=== PATIENT | female | born 1985 | race Caucasian/White ===

== ENCOUNTER 2016-09-03 22:23 | Outpatient (CLI) | payer MEDICAID ==
[~2016-09-03] VITALS: Ht 167.6 cm; Wt 94.6 kg
[~2016-09-03 22:23] MED LIST: PREN1TAB62 PO
--- NOTE | 2016-09-03 22:50 | PN ---
Date/Time of Note Date/Time of Note DATE: 09/03/16 TIME: 22:46 OB Subjective Subjective Subjective 30 yo P4 @36 wks, presents for second dose of betamethasone, prior to repeat c/ d tomorrow denies ctx, denies vb, no LOF, good FM OB Objective Objective Objective Nml VS abdomen- gravid, n/t SVE- deferred FHT- Cat I Abdomen: WNL Varibility: Moderate Contractions on Admission: None OB Assessment/Plan Other Assessment: reassuring status no ctx Other plan: patient to receive betamethasone return tomorrow for repeat c/d MICHAEL DIAZ MD Sep 03, 2016 22:49
[2016-09-03 22:56] VITALS: Ht 167.6 cm; Wt 94.6 kg
[2016-09-03 22:57] VITALS: BP 123/59; PULSE 80; RESP 18
[2016-09-03] MEDS ORDERED: BETAMET NA PHOS/AC(6 MG/ML) 5ML INJ IM SCH (23:00)
--- NOTE | 2016-09-04 00:45 | RADRPT ---
PROCEDURE: US OB biophysical profile. CLINICAL INDICATION: decreased movements TECHNIQUE: Multiple sonographic images of the pelvis were obtained. The images were reviewed on a PACS workstation. COMPARISON: No pertinent prior examinations were submitted for comparison. FINDINGS: There is a single viable intrauterine gestation. Cardiac activity is present with 131 beats per min [place]. There is a vertex presentation. The placenta is anterior, grade II in appearance. There is a normal amount of amniotic fluid with an VICKI = 7.9 cm. Biophysical profile: movement 2/2 tone 2/2. breathing 2/2 VICKI 2/2 Total 04/10 IMPRESSION: Normal biophysical profile. RPTAT: HIKT . .Abdirizak Fregoso MD, MD Date Time Electronically viewed and signed by .Abdirizak Fregoso MD, on 09/04/2016 00:45 .T/
--- NOTE | 2016-09-04 02:04 | TRIAGE ---
OB Triage Datetime Report Generated by CPN: 09/04/2016 02:04 Datetime: 09/04/2016 01:16 Stage of : OB Triage Datetime: 09/04/2016 00:50 Stage of : OB Triage Datetime: 09/04/2016 00:30 Stage of : OB Triage Frequency: IRREGULAR Monitor Mode: External Duration (sec)2399: 60-100 Quality: Mild Pattern: Normal: <= 5 Contractions in 10 Minutes Resting Tone Schriever: Relaxed FHR Baseline Rate: 115 Monitor Mode: External US FHR Baseline Changes: No Baseline Change Variability: Minimal - Undetectable to <=5 bpm Accelerations: 15X15 Decelerations: None Category: Category I Datetime: 09/03/2016 23:30 Stage of : OB Triage Frequency: IRREGULAR Monitor Mode: External Duration (sec)2399: 60-100 Quality: Mild Pattern: Normal: <= 5 Contractions in 10 Minutes Resting Tone Schriever: Relaxed FHR Baseline Rate: 125 Monitor Mode: External US FHR Baseline Changes: No Baseline Change Variability: Minimal - Undetectable to <=5 bpm Accelerations: 15X15 Decelerations: None Category: Category II Datetime: 09/03/2016 23:18 Stage of : OB Triage Datetime: 09/03/2016 22:33 Stage of : OB Triage Datetime: 09/03/2016 22:30 Stage of : OB Triage Datetime: 09/03/2016 22:22 Stage of : OB Triage Assessment Type: Triage Time of Arrival: 09/03/2016 22:22 EGA: 36.1 Arrived By: Wheelchair Arrived From: Home Chief Complaint: #2 BETAMETHASONE Movement: Decreased Contractions: Denies/Absent Rupture of Membranes: Denies Vaginal Bleeding: None Vaginal Discharge: Denies Recent Sexual Intercouse: Denies Abdominal Trauma: Not Applicable Patient Complaints: None Time Provider Notified: 09/03/2016 22:33 Provider Notified: DR DIAZ Initial Plan: CALL , EFM Level of Consciousness: Fully Conscious DTR's/Clonus: DTRs 2+; No Clonus Headache: Denies Blurred Vision: No Respiratory Effort: Unlabored; Regular Rhythm; Equal Expansion Breath Sounds, Left: Clear and Equal Breath Sounds, Right: Clear and Equal Nausea/Vomiting: Denies RUQ Epigastric Pain: Denies Lower Extremities Edema: None Degree: None Upper Extremities Edema: None Degree: None Facial Edema: None Temperature Route: Oral History of Falling: (0) No Secondary Diagnosis: (0) No Ambulatory Aid: (0) Bedrest/Nurse Assist IV Therapy: (0) No Gait: (0) Normal/Bedrest/Immobile Mental Status: (0) Oriented to Own Ability Fall Score: 0 Fall Risk Score Definition: No Risk: No action required Monitor Mode: External Monitor Mode: External US Pain Scale: 0
== END 2016-09-04 01:05 | disposition home or self-care (01) ==
LOC: OBT 22:23 → L-D 22:24 → OBT 09-04 01:05
PROVIDERS: ATTEND Specialist
DX: O09.893 Supervision of other high risk pregnancies, third trimester (principal); Z3A.36 36 weeks gestation of pregnancy
CPT/HCPCS: 76818; 96372; G0463

== ENCOUNTER 2016-09-04 07:30 | Inpatient (IN) | payer MEDICAID ==
[~2016-09-04] VITALS: Ht 167.6 cm; Wt 92.7 kg
[2016-09-04] MEDS: LACTATED RINGER'S 1,000 ML IV SCH ×3 (16:55→19:28)
[2016-09-04] MEDS ORDERED: OXYTOCIN 30 UNITS/LR 500 ML IV SCH (17:00)
[2016-09-04] MEDS ORDERED: METHYLERGONOVINE 0.2 MG INJ IM PRN (17:00)
[2016-09-04] MEDS ORDERED: CEFAZOLIN 2 GM/50 ML (PMX) 50 ML IV SCH (17:00)
[2016-09-04] MEDS ORDERED: OXYTOCIN 30 UNITS/LR 500 ML IV PRN (17:00)
[2016-09-04] MEDS ORDERED: CARBOPROST 250 MCG INJ IM PRN (17:00)
[2016-09-04] MEDS ORDERED: MISOPROSTOL 200 MCG TAB PR PRN ×2 (17:00→19:30)
[2016-09-04 17:05] VITALS: BP 108/58; PULSE 76; RESP 20
[2016-09-04 17:08] VITALS: Ht 167.6 cm; Wt 92.7 kg
[2016-09-04 17:21] LABS: HEMATOCRIT 35.5 % (37.0-47.0); HEMOGLOBIN 11.9 g/dl (12.0-16.0); LYMPHOCYTES # 1.4 10^3/ul (0.8-2.9); LYMPHOCYTES % 10.2 % (15.0-51.0); MEAN CORPUSCULAR HEMOGLOBIN 29.8 pg (29.0-33.0); MEAN CORPUSCULAR HGB CONC 33.4 g/dl (32.0-37.0); MEAN CORPUSCULAR VOLUME 89.1 fl (82.0-101.0); MEAN PLATELET VOLUME 10.3 fl (7.4-10.4); MONOCYTE # 0.6 10^3/ul (0.3-0.9); MONOCYTES % 4.5 % (0.0-11.0); NEUTROPHIL # 11.3 10^3/ul (1.6-7.5); NEUTROPHILS % 85.3 % (39.0-77.0); PLATELET COUNT 194 10^3/UL (140-440); RED BLOOD COUNT 3.98 10^6/ul (4.20-5.40); RED CELL DISTRIBUTION WIDTH 14.2 % (11.5-14.5); UNCORRECTED WBC 13.3 10^3/ul (4.8-10.8); WHITE BLOOD COUNT 13.3 10^3/ul (4.8-10.8)
[2016-09-04 17:32] LABS: INR 0.92; PROTIME 12.4 Sec (12.2-14.2)
[2016-09-04 17:33] LABS: PARTIAL THROMBOPLASTIN TIME 24.2 Sec (25.0-35.0)
[2016-09-04] MEDS ORDERED: CITRIC ACID/NA CITRATE 30 ML CUP ONE (17:34)
[2016-09-04 17:39] LABS: CONDITION 1
[2016-09-04] MEDS ORDERED: FAMOTIDINE 20 MG INJ ONE (17:55)
[2016-09-04] MEDS ORDERED: FAMOTIDINE 20 MG INJ IV ONE (18:00)
[2016-09-04] MEDS ORDERED: CITRIC ACID/NA CITRATE 30 ML CUP PO ONE (18:00)
[2016-09-04] MEDS ORDERED: morphine SULFATE/PF (10 MG/10 ML) INJ ONE (18:55)
[2016-09-04] MEDS ORDERED: FENTAnyl 50 MCG/ML VIAL ONE (18:56)
[2016-09-04] MEDS ORDERED: NA PHOSPHATE/BIPHOS 133 ML ENEMA PR PRN (19:30)
[2016-09-04] MEDS ORDERED: morphine 2 MG INJ IV PRN ×2 (19:30)
[2016-09-04] MEDS ORDERED: ONDANSETRON 4 MG INJ IV PRN (19:30)
[2016-09-04] MEDS ORDERED: NALOXONE (0.4 MG/ML) INJ IV PRN (19:30)
[2016-09-04] MEDS ORDERED: OXYCODONE/ACETAMINOPHEN (5/325) TAB PO PRN (19:30)
[2016-09-04] MEDS ORDERED: ZOLPIDEM 5 MG TAB PO PRN (19:30)
[2016-09-04] MEDS ORDERED: LANOLIN 7 GM TUBE TOP PRN (19:30)
[2016-09-04] MEDS ORDERED: DIPHENHYDRAMINE 50 MG INJ IV PRN (19:30)
--- NOTE | 2016-09-04 19:33 | HP ---
Date/Time of Note Date/Time of Note DATE: 09/04/16 TIME: 19:29 OB - History Hx of Present Free Text/Dictation Gin is with IUP at 36 weeks and h/o c/s x 3 in the past. she had complete uterine rupture wih last . perinatologist recommended delivery at 36 weeks. she also desires BTL. Care: Good Care Ultrasounds: Normal mid trimester US Obstetrical Complications: Other (see above) Medical Complications: None Past Family/Social History * Past Medical, Surgical, Family and Obstetric Histories reviewed from chart. OB Admission Exam Vital Signs Vital Signs Vital Signs Date Time Temp Pulse Resp B/P Pulse Ox O2 Delivery O2 Flow Rate FiO2 09/04/16 17:05 98.5 76 20 108/58 Room Air Physical Exam HEENT: WNL Heart: Rhythm Normal Lungs: Clear, Equal Abdomen: WNL Extremities: Normal Reflexes: Normal Last 72 hours Lab Results CBC & BMP 09/04/16 17:00 OB Assessment/Plan Other Assessment: 36 weeks IUP h/o c/s x 3 h/o ruptured uterus desires BTL Other plan: repeat c/s and BTL DONALD SU MD Sep 04, 2016 19:33
--- NOTE | 2016-09-04 20:18 | PREOPHP ---
DATE OF ADMISSION: 09/04/2016 The patient is a 30-year-old 5, para 4 who desires repeat delivery and tubal ligati on. The risks, benefits, indications, alternatives of procedure including but not limited to risk of inf ection; bleeding; damage to other organs, bowel, bladder; hernia formation; scar formation; possibil ity of blood transfusions were all discussed with the patient. She was allowed to ask questions, al l her questions answered. Informed consent has been obtained. Possibilities of tubal failure and f or possible pregnancies were also discussed with the patient, and informed consent was obtained. ____ delivery at 36 weeks which is unusual, but the reason is because her last wa s complicated with complete uterine rupture. The uterus was completely ruptured. She was seen by p erinatologist, and she was recommended to undergo early . She has received steroids 2 4 and 48 hours ago. PAST MEDICAL HISTORY: None. PAST SURGICAL HISTORY: delivery x3. ALLERGIES: NO KNOWN DRUG ALLERGIES. MEDICATIONS: 1. vitamins. 2. Iron. REVIEW OF SYSTEMS: Significant as above. PHYSICAL EXAMINATION: VITAL SIGNS: Stable. She is afebrile. GENERAL: No acute distress. HEENT: No thyromegaly. HEART: Regular rate and rhythm. LUNGS: Clear to auscultation bilaterally. ABDOMEN: Soft, gravid, nontender. Cervix is not examined. EXTREMITIES: No edema. ASSESSMENT: 1. Term . 2. History of previous delivery. 3. History of uterine rupture. 4. Desires permanent sterilization. PLAN: Repeat delivery and tubal ligation. Informed consent obtained. Dictated By: DONALD HADDAD/AZUCENA Conf#: [id number] DID#: [id number]
[2016-09-04] MEDS: SENNA/DOCUSATE NA (8.6MG/50MG) TAB PO SCH (21:00)
--- NOTE | 2016-09-04 22:02 | OPR ---
DATE OF OPERATION: PREOPERATIVE DIAGNOSES: 1. at 36 weeks, 2. History of previous delivery x3. 3. History of rupture. 4. The patient desires permanent sterilization. POSTOPERATIVE DIAGNOSES: 1. Repeat delivery. 2. Tubal ligation. SURGEON: Dr. Mcdowell. SUPERVISOR EVAPORATOR: . PROCEDURE: Repeat delivery and tubal ligation by bilateral salpingectomy. ESTIMATED BLOOD LOSS: 700 mL. COMPLICATIONS: None. INFORMED CONSENT: The risks, benefits, indications, alternatives of procedure including, but not li mited to, risk of infection, bleeding, damage to other organs, bowel, bladder, hernia formation, sca r formation, possibility of blood transfusions, the fact that tubal ligation is permanent and nonrev ersible but it may fail were all discussed with the patient. She was allowed to ask questions, all her questions were answered, and informed consent was obtained. DESCRIPTION OF PROCEDURE: She was taken to the operating room and spinal anesthesia was given. She was prepped and draped in usual sterile fashion. Surgical time out was done. Anesthesia was teste d to be adequate. With permission of the anesthesiologist, a Pfannenstiel skin incision was develop ed over the previous scar. The incision was taken down in layers. The fascia was cut, undermined, from the underlying muscle using sharp and blunt dissection. All bleeders were cauterized . Peritoneum was entered sharply. A low uterine transverse incision was developed over the lower s egment of the uterus and amniotic fluid was clear and adequate. The baby was born and we waited 1 m inute for delayed cord clamping, and then the cord was clamped and cut and baby was handed to [facility] [place] team. Placenta was then delivered intact. The uterus was exteriorized, wrapped in a moist lap. Inside uterus was cleansed with dry lap. All debris and membranes were removed. Uterine incision w as initially closed using #1 Monocryl in 2 layers. There was still bleeding so extra rrbbhf-[id number]-yawc t sutures were placed using 2-0 Monocryl. The bleeding continued. I used [id number] sutures u sing 0 Vicryl and then all bleeding on the uterus stopped. After complete hemostasis was achieved, the left tube was grasped using 2 Plover clamps. A 6 cm distal end of the tube was ligated 3 times using 0 plain ties. The ligated portion was cut and sent to pathology. Same procedure was done on the contralateral side. The uterus was evaluated. There was no bleeding. Uterus was inserted ins ethel the abdominal cavity. Irrigation was done. Gutters were cleaned. Uterine incision was evaluat ed carefully. There was no bleeding. Tubal ligation sites on both sides were looked at, evaluated. There was no bleeding. The peritoneum, rectus muscle, rectus fascia were evaluated. All bleeders cauterized. Peritoneal cavity was explored. There were no surgical instruments or laps left behin d. Peritoneum at this time was closed using 2-0 Monocryl and rectus muscles closed using 2-0 Monocr yl. The fascia was closed using #1 Vicryl. Subcutaneous tissue was cleaned, irrigated, all bleeder s cauterized and closed using 3-0 Vicryl, and skin closed using 4-0 Monocryl. All counts correct. Dictated By: DONALD HADDAD/AZUCENA Conf#: [id number] DID#: [id number]
[2016-09-04] MEDS: KETOROLAC 30 MG INJ IV PRN (22:41)
--- NOTE | 2016-09-04 22:50 | DELSUM ---
Delivery Summary A-C Datetime Report Generated by CPN: 09/04/2016 22:50 DELIVERY PERSONNEL [employer] Information Architect: Milagros Lamar MATERNAL INFORMATION Delivery Anesthesia: Spinal Medications in Delivery: see anesthesia Estimated Blood Loss (ml): 700 Placenta Cultured: No Maternal Complications: None RN Comments: H/O FAILED 2014 D/T UTERINE RUPTURE LABOR SUMMARY EDC: 09/30/2016 00:00 No. Babies in Womb: 1 Attempted: No Labor Anesthesia: None LABOR INFORMATION Reason for Induction: Not Applicable Oxytocin: N/A Group B Beta Strep: Negative Antibiotics # of Doses: ANCEF 2 GRAMS X1 Antibiotics Time of Last Dose: 193 Steroids Given: None Reason Steroids Not Administered: Not Applicable MEMBRANES Membranes Rupture Method: Artificial Rupture of Membranes: 09/04/2016 19:57 Length of Rupture (hr): 0.00 Amniotic Fluid Color: Clear Amniotic Fluid Amount: Moderate Amniotic Fluid Odor: Normal STAGES OF LABOR Stage 3 hr: 0 Stage 3 min: 3 CSECTION DELIVERY Primary Indication: Repeat Elective Secondary Indication: N/A CSection Urgency: Non Elective CSection Incidence: Repeat Labor: No Labor Elective: Nonelective CSection Incision: Lower Uterine Transverse Sterilization Procedure: Breezy BABY A INFORMATION Delivery Date/Time: 09/04/2016 19:57 Method of Delivery: Born in Route : No : N/A Forceps: N/A Vacuum Extraction: N/A Shoulder Dystocia : N/A SHOULDER DYSTOCIA BABY A Infant Delivery Date/Time: 09/04/2016 19:57 PRESENTATION/POSITION BABY A Presentation: Cephalic Cephalic Presentation: Vertex Vertex Position: Left Occipital Anterior Breech Presentation: N/A PLACENTA INFORMATION BABY A Placenta Delivery Time : 09/04/2016 20:00 Placenta Method of Delivery: Manual Removal Placenta Status: Delivered SCORES BABY A Heart Rate 1 min: >100 bpm Resp Effort 1 min: Good Cry Reflex Irritability 1 min: Cough/Sneeze/Pulls Away Muscle Tone 1 min: Active Motion Color 1 min: Body [place], Extremit Blue Resuscitation Effort 1 min: Tactile Stimulation SCORE 1 MIN: 9 Heart Rate 5 min: >100 bpm Resp Effort 5 min: Good Cry Reflex Irritability 5 min: Cough/Sneeze/Pulls Away Muscle Tone 5 min: Active Motion Color 5 min: Body [place], Extremit Blue Resuscitation Effort 5 min: Tactile Stimulation SCORE 5 MIN: 9 INFANT INFORMATION BABY A Gestational Age at Delivery: 36.2 Gestational Status: Late - 34- 36.6 Weeks Infant Outcome : Liveborn Condition : Stable Sex: Male IDENTIFICATION/MEDS BABY A ID Band Number: [id number] ID Band Location: Right Leg; Left Arm Sensor Number: [id number] Sensor Location : Cord Clamp Vitamin K Given : Not Given Erythromycin Given: Not Given WEIGHT/LENGTH BABY A Infant Birthweight (gm): 3270 Infant Weight (lb): 7 Infant Weight (oz): 3 Infant Length (in): 18.00 Length (cm): 45.72 CORD INFORMATION BABY A No. Cord Vessels: 3 Nuchal Cord : Around Neck x1, Loose Cord Blood Taken: Yes Infant Suction: Mouth; Nose ASSESSMENT BABY A Complications: None Physical Findings at Delivery: Within Normal Limits Respirations: Appears Normal Customs [employer] Border [employer] Inspector/ALS Called : No Care By: Prema MARADIAGA RN Transferred To: Remains with Mother
--- NOTE | 2016-09-04 22:53 | OPRPT ---
Intraop Record Datetime Report Generated by CPN: 09/04/2016 22:52 Datetime: 09/04/2016 22:45 Sequential Compression Device: Yes Datetime: 09/04/2016 22:30 Sequential Compression Device: Yes Datetime: 09/04/2016 22:15 Sequential Compression Device: Yes Datetime: 09/04/2016 22:00 Sequential Compression Device: Yes Datetime: 09/04/2016 21:45 Sequential Compression Device: Yes Datetime: 09/04/2016 21:30 Sequential Compression Device: Yes Datetime: 09/04/2016 21:15 Sequential Compression Device: Yes Datetime: 09/04/2016 21:00 Sequential Compression Device: Yes Datetime: 09/04/2016 20:50 Sequential Compression Device: Yes Datetime: 09/04/2016 18:30 OR Number: 2 TIMES/PROCEDURE Arrive OR: 09/04/2016 19:25 Depart OR: 09/04/2016 20:50 Anesthesia Start: 09/04/2016 19:15 Anesthesia End: 09/04/2016 20:56 Surgery Start: 09/04/2016 19:52 Surgery End: 09/04/2016 20:37 Preoperative Dx: 36.2 IUP REPEAT SECTION WITH BTL Surgical Procedure: Section with BTL Postoperative Dx: Repeat caesarean section and bilateral tubal ligation Uterine Incision: 09/04/2016 19:52 PERSONNEL Surgeon: Rom Mcdowell Scrub: Meet Pena Anesthesia Care Provider: Ladarius Waldron Care: See Delivery Summary for Infant Care Providers Anesthesia Type: Spinal ASA Level: II RISK FOR INJURY Mode of Arrival: Ambulate Procedure Time Out: Correct Patient Identity; Accurate Procedure Consent Form; Agreement on Procedu re to be Done; Correct Patient Position; Addressed Need to Administer Antibiotics or Fluids for Irri gation; Safety Precautions Based on Patient History or Medication Use Preoperative Information: Preoperative Checklist Reviewed; Allergies Reviewed; NPO Status Verified RISK FOR ANXIETY/KNOW DEFICIT Emotional Status: Calm/Relaxed Interventions: Provided Education Based on Age and Identified Needs; Communicated Patient Concerns to Appropriate Members of the Health Care Team; Explained Sequence of Events and Perioperative Routi ne; Evaluated Response to Instructions RISK FOR PAIN Pain Teaching: Instructed on Pain Scale Pain Scale: 2.0 Pain Location: ABDOMEN PREOPERATIVE OUTCOMES Preoperative Outcomes: Verbalizes/Indicates Decreased Anxiety, Ability to [place], Understanding of Pr ocedure and Sequence of Events. Questions Answered; Demonstrates Adequate Pain Management; Verbaliz es Comfort Related to Transfer/Transport RISK FOR INFECTION Skin Pre-Operative Site: Intact Clip: Clip Clip Location: CLOSED LEGS ABDOMINAL CLIP Prep: Yes Prep By: Fela MARTIN Prep Solution: Chlorohexadine Other Prep: 3 MINUTES MARQUITA WIPES Catheter: Almendarez Catheter Size: 16 Catheter Inserted By: Amor GRIJALVA Surgical Wound Class: I-Clean Dressing Type: Transparent Dressing; Other Other Dressing Types: GAUZE, TELFA, ABD, PRESSURE DRESSING, AND CLEAR TAPE Risk for Impaired Skin Integrity Position in OR: Supine Bony Prominences Protection: N/A Positioning Devices: N/A Risk for Hypothermia Warming Interventions: Warm Irrigation Warming Unit Temp Settin.0 Warming Device Number: BEC #[id number] Risk for Injury Safety Straps Applied: Legs Sequential Compression Device: Yes Electrosurgical Unit: Yes Electrosurgical Unit Number: [id number] Bipolar Number: LOT #[id number] [id number] 2018-06-21 Ground Pad Location: Right Anterior Thigh Coag Number: 65 Cut Number: 65 1st Count Sponge Count: Correct Needle Count: Correct Blade Count: Correct Instrument Count: Correct 2nd Count Sponge Count: Correct Needle Count: Correct Blade Count: Correct Instrument Count: Not Done 3rd Count Sponge Count: Correct Needle Count: Correct Blade Count: Correct Instrument Count: Not Done Final Count Sponge Count 4: Correct Needle Count 4: Correct Blade Count 4: Correct Instrument Count 4: Correct Surgeon Acknowledged Count: Yes Final Count Resolution: Count Correct Intraoperative Data Equipment: Non-Invasive Blood Pressure; Pulse Oximeter; EKG Blood Products Given: N/A Implants/Prosthesis Implants/Prosthesis: N/A Grafts: N/A Irrigation Irrigants: NACL; Sterile H2O Irrigation Amount: 1L EACH Specimens Specimens: Yes Specimen Type: Fallopian Tubes (Annotations: Data stored by [facility] on behalf of user) Disposition: RIGHT Specimen Type: Fallopian Tubes Disposition: LEFT Cultures Cultures: N/A X-Ray X-Ray Taken: No Postoperative Skin: Warm; Dry Pain Scale: 0 Condition: Awake; Alert Temperature: 97.8 Operative Outcomes: Patient's Surgery Performed Using Aseptic Technique and in a Manner to Prevent Cross-Contamination; Skin Remains Smooth, Intact, Non-reddened, Non-irritated, Free of Bruising; Cor e Body Temperature Remains in Expected Range Other Operative Outcomes: GROUNDING PAD SITE REMAINS INTACT Transfer To: L_D Other: RECOVERY ROOM Datetime: 09/03/2016 23:00 Drug Allergies/Reactions: No Known Allergy (09/03/2016) Datetime: 09/02/2016 21:57 Food Allergies/Reactions: none Latex Allergies/Reactions: No Latex Allergies Datetime: 09/02/2016 21:56 Drug Allergies/Reactions: No Known Allergy/[place] (09/02/2016) Datetime: 09/02/2016 21:38 Drug Allergies/Reactions: No Known Allergy/[place] (01/02/2009)
--- NOTE | 2016-09-04 22:53 | DELSUM ---
Delivery Summary A-C Datetime Report Generated by CPN: 09/04/2016 22:52 DELIVERY PERSONNEL Environmental Attorney: Lamar Linares MATERNAL INFORMATION Delivery Anesthesia: Spinal Medications in Delivery: see anesthesia Estimated Blood Loss (ml): 700 Placenta Cultured: No Maternal Complications: None RN Comments: H/O FAILED 2014 D/T UTERINE RUPTURE LABOR SUMMARY EDC: 09/30/2016 00:00 No. Babies in Womb: 1 Attempted: No Labor Anesthesia: None LABOR INFORMATION Reason for Induction: Not Applicable Oxytocin: N/A Group B Beta Strep: Negative Antibiotics # of Doses: ANCEF 2 GRAMS X1 Antibiotics Time of Last Dose: 193 Steroids Given: None Reason Steroids Not Administered: Not Applicable MEMBRANES Membranes Rupture Method: Artificial Rupture of Membranes: 09/04/2016 19:57 Length of Rupture (hr): 0.00 Amniotic Fluid Color: Clear Amniotic Fluid Amount: Moderate Amniotic Fluid Odor: Normal STAGES OF LABOR Stage 3 hr: 0 Stage 3 min: 3 CSECTION DELIVERY Primary Indication: Repeat Elective Secondary Indication: N/A CSection Urgency: Non Elective CSection Incidence: Repeat Labor: No Labor Elective: Nonelective CSection Incision: Lower Uterine Transverse Sterilization Procedure: Breezy BABY A INFORMATION Delivery Date/Time: 09/04/2016 19:57 Method of Delivery: Born in Route : No : N/A Forceps: N/A Vacuum Extraction: N/A Shoulder Dystocia : N/A SHOULDER DYSTOCIA BABY A Infant Delivery Date/Time: 09/04/2016 19:57 PRESENTATION/POSITION BABY A Presentation: Cephalic Cephalic Presentation: Vertex Vertex Position: Left Occipital Anterior Breech Presentation: N/A PLACENTA INFORMATION BABY A Placenta Delivery Time : 09/04/2016 20:00 Placenta Method of Delivery: Manual Removal Placenta Status: Delivered SCORES BABY A Heart Rate 1 min: >100 bpm Resp Effort 1 min: Good Cry Reflex Irritability 1 min: Cough/Sneeze/Pulls Away Muscle Tone 1 min: Active Motion Color 1 min: Body [place], Extremit Blue Resuscitation Effort 1 min: Tactile Stimulation SCORE 1 MIN: 9 Heart Rate 5 min: >100 bpm Resp Effort 5 min: Good Cry Reflex Irritability 5 min: Cough/Sneeze/Pulls Away Muscle Tone 5 min: Active Motion Color 5 min: Body [place], Extremit Blue Resuscitation Effort 5 min: Tactile Stimulation SCORE 5 MIN: 9 INFANT INFORMATION BABY A Gestational Age at Delivery: 36.2 Gestational Status: Late - 34- 36.6 Weeks Infant Outcome : Liveborn Condition : Stable Sex: Male IDENTIFICATION/MEDS BABY A ID Band Number: [id number] ID Band Location: Right Leg; Left Arm Sensor Number: [id number] Sensor Location : Cord Clamp Vitamin K Given : Not Given Erythromycin Given: Not Given WEIGHT/LENGTH BABY A Infant Birthweight (gm): 3270 Infant Weight (lb): 7 Infant Weight (oz): 3 Infant Length (in): 18.00 Length (cm): 45.72 CORD INFORMATION BABY A No. Cord Vessels: 3 Nuchal Cord : Around Neck x1, Loose Cord Blood Taken: Yes Infant Suction: Mouth; Nose ASSESSMENT BABY A Complications: None Physical Findings at Delivery: Within Normal Limits Respirations: Appears Normal Check Examiner/ALS Called : No Care By: Prema MARADIAGA RN Transferred To: Remains with Mother
[2016-09-04 23:10] VITALS: BP 106/56; PULSE 65; RESP 16
[2016-09-05] MEDS: LACTATED RINGER'S 1,000 ML IV SCH ×6 (01:50→19:28)
[2016-09-05 04:00] VITALS: BP 105/56; PULSE 72; RESP 18
[2016-09-05 06:43] LABS: BASOPHILS % 0.1 % (0.0-2.0); HEMATOCRIT 31.4 % (37.0-47.0); HEMOGLOBIN 10.6 g/dl (12.0-16.0); LYMPHOCYTES # 1.7 10^3/ul (0.8-2.9); LYMPHOCYTES % 10.9 % (15.0-51.0); MEAN CORPUSCULAR HEMOGLOBIN 30.1 pg (29.0-33.0); MEAN CORPUSCULAR HGB CONC 33.6 g/dl (32.0-37.0); MEAN CORPUSCULAR VOLUME 89.6 fl (82.0-101.0); MEAN PLATELET VOLUME 10.7 fl (7.4-10.4); MONOCYTE # 0.8 10^3/ul (0.3-0.9); MONOCYTES % 5.4 % (0.0-11.0); NEUTROPHILS % 83.6 % (39.0-77.0); PLATELET COUNT 156 10^3/UL (140-440); UNCORRECTED WBC 15.6 10^3/ul (4.8-10.8); WHITE BLOOD COUNT 15.6 10^3/ul (4.8-10.8)
[2016-09-05 06:57] LABS: CONDITION 1
[2016-09-05] MEDS: IBUPROFEN 600 MG TAB PO SCH ×5 (07:00→23:53)
[2016-09-05 08:00] VITALS: BP 110/57; PULSE 71; RESP 18
[2016-09-05] MEDS: KETOROLAC 30 MG INJ IV PRN ×2 (08:33→14:51)
[2016-09-05] MEDS: SENNA/DOCUSATE NA (8.6MG/50MG) TAB PO SCH ×2 (08:36→20:18)
[2016-09-05 12:00] VITALS: BP 108/48; PULSE 74; RESP 18
[2016-09-05 16:00] VITALS: BP 109/59; PULSE 88; RESP 18
[2016-09-05 20:18] VITALS: BP 106/57; PULSE 79; RESP 20
[2016-09-05] MEDS: OXYCODONE/ACETAMINOPHEN (5/325) TAB PO PRN (20:18)
--- NOTE | 2016-09-05 23:08 | PN ---
Date/Time of Note Date/Time of Note DATE: 09/05/16 TIME: 23:06 OB Subjective Subjective Subjective c/o pain OB Objective Objective Objective Afebrile and VSS abdomen is soft Dressing is clean and dry mild lochia ext: +1 edema s/p /s POD #1 Doing well continue with current care DONALD SU MD Sep 05, 2016 23:08
[2016-09-06] MEDS: LACTATED RINGER'S 1,000 ML IV SCH ×4 (00:43→11:28)
[2016-09-06 03:53] VITALS: BP 111/57; PULSE 75; RESP 19
[2016-09-06] MEDS: OXYCODONE/ACETAMINOPHEN (5/325) TAB PO PRN ×3 (03:53→20:12)
[2016-09-06] MEDS: IBUPROFEN 600 MG TAB PO SCH ×4 (05:35→23:47)
[2016-09-06 07:43] VITALS: BP 108/57; PULSE 64; RESP 18
[2016-09-06] MEDS: SENNA/DOCUSATE NA (8.6MG/50MG) TAB PO SCH ×2 (08:59→20:39)
--- NOTE | 2016-09-06 14:47 | PN ---
Date/Time of Note Date/Time of Note DATE: 09/06/16 TIME: 14:43 OB Subjective Subjective Subjective Tolerated regular diet well. Denies any nausea or vomiting, Passed flatus, breast feeding. urinated. Baby receiving photo therapy. Ambulated. pain well controlled with PO pain medications. OB Objective Objective Objective GA: A&O, NAD Lungs; CTA Bilateal CV: RRR Abdomen: Soft, moderate distension, Normal bowel sounds audible. appropriate tenderness over the section scar noted Scar clean, dry and intact Extremities: No calf tenderness, no click, no edema Hematology - 72 Hrs Test 09/04/16 17:00 09/05/16 05:37 Basophils # 0.010^3/ul (0.0-0.1) 0.010^3/ul (0.0-0.1) Basophils % 0.0% (0.0-2.0) 0.1% (0.0-2.0) Eosinophils # 0.010^3/ul (0.0-0.5) 0.010^3/ul (0.0-0.5) Eosinophils % 0.0% (0.0-7.0) 0.0% (0.0-7.0) Hematocrit 35.5% (37.0-47.0) L 31.4% (37.0-47.0) L Hemoglobin 11.9g/dl (12.0-16.0) L 10.6g/dl (12.0-16.0) L Lymphocytes # 1.410^3/ul (0.8-2.9) 1.710^3/ul (0.8-2.9) Lymphocytes % 10.2% (15.0-51.0) L 10.9% (15.0-51.0) L Mean Corpuscular Hemoglobin 29.8pg (29.0-33.0) 30.1pg (29.0-33.0) Mean Corpuscular Hemoglobin Concent 33.4g/dl (32.0-37.0) 33.6g/dl (32.0-37.0) Mean Corpuscular Volume 89.1fl (82.0-101.0) 89.6fl (82.0-101.0) Mean Platelet Volume 10.3fl (7.4-10.4) 10.7fl (7.4-10.4) H Monocytes # 0.610^3/ul (0.3-0.9) 0.810^3/ul (0.3-0.9) Monocytes % 4.5% (0.0-11.0) 5.4% (0.0-11.0) Neutrophils # 11.310^3/ul (1.6-7.5) H 13.010^3/ul (1.6-7.5) H Neutrophils % 85.3% (39.0-77.0) H 83.6% (39.0-77.0) H Nucleated Red Blood Cells # 0.010^3/ul (0.0-0.0) 0.010^3/ul (0.0-0.0) Nucleated Red Blood Cells % 0.0/100WBC (0.0-0.0) 0.0/100WBC (0.0-0.0) Platelet Count 03756^3/UL (140-440) 04734^3/UL (140-440) Red Blood Count 3.9810^6/ul (4.20-5.40) L 3.5010^6/ul (4.20-5.40) L Red Cell Distribution Width 14.2% (11.5-14.5) 14.0% (11.5-14.5) White Blood Count 13.310^3/ul (4.8-10.8) H 15.610^3/ul (4.8-10.8) H Blood Morphology Comment OB Assessment/Plan Other Assessment: POD #2 S/p Repeat section Doing well Mid anemia, post op, asymptomatic Plan: Expectant Management Other plan: Routine post op care Advised about ambulation and incentive spirometer SIRISHA KOHLI MD Sep 06, 2016 14:47
[2016-09-06 16:00] VITALS: BP 112/59; PULSE 81; RESP 18
[2016-09-06 19:45] VITALS: BP 115/62; PULSE 73; RESP 16
[2016-09-07 04:20] VITALS: BP 120/65; PULSE 56; RESP 16
[2016-09-07] MEDS: IBUPROFEN 600 MG TAB PO SCH ×4 (05:36→19:38)
[2016-09-07 08:05] VITALS: BP 131/74; PULSE 63; RESP 18
[2016-09-07] MEDS: OXYCODONE/ACETAMINOPHEN (5/325) TAB PO PRN ×2 (08:05→16:08)
--- NOTE | 2016-09-07 08:09 | DS ---
Date/Time of Note Date/Time of Note DATE: 09/07/16 TIME: 08:07 Obstetrical Discharge Record Final Diagnosis Final Diagnosis: delivered Section Section: Repeat Complications Other (h/o uterine rupture wihen she attempted TOLAC with last ) Condition on Discharge Physical Assessment Voiding: Yes Bowel Movement: Yes Breast: Soft, non-tender, Filling Fundus: Firm Abdomen and Incision: abdomen is soft. incision is clean and intact Episiotomy: NA Calf Tenderness: No Patient Condition: Good DONALD SU MD Sep 07, 2016 08:09
[2016-09-07] MEDS: SENNA/DOCUSATE NA (8.6MG/50MG) TAB PO SCH (08:53)
[2016-09-07] MEDS ORDERED: DIPHTH/TET/ACEL PERTUSS (ADULT) 0.5 ML VIAL IM* ONE (09:00)
[2016-09-07] MEDS ORDERED: MEASLES,MUMPS,RUBELLA VACCINE INJ SC* ONE (09:00)
[2016-09-07 16:00] VITALS: BP 120/75; PULSE 79; RESP 20
[2016-09-07 19:38] VITALS: BP 114/58; PULSE 65; RESP 18
== END 2016-09-07 21:40 | disposition home or self-care (01) | DRG 765 ==
LOC: L-D 16:39 → PP1 22:51
PROVIDERS: ADMIT Specialist; ATTEND Specialist
PROC: 0UL70ZZ Occlusion of Bilateral Fallopian Tubes, Open Approach (ICD-10-PCS; 2016-09-04)
PROC: 10D00Z1 Extraction of Products of Conception, Low, Open Approach (ICD-10-PCS; principal; 2016-09-04 18:00)
DX: O34.211 Maternal care for low transverse scar from previous cesarean delivery (principal); O60.14X0 Preterm labor third trimester with preterm delivery third trimester, not applicable or unspecified; Z30.2 Encounter for sterilization; Z3A.36 36 weeks gestation of pregnancy; Z37.0 Single live birth
CPT/HCPCS: 85025; 85610; 85730; 86592; 86850; 86900; 86901; 87340; 88302; 90715; 94760; 99464; J0690; J1885; J2274; J3010; J7120